=== PATIENT | female | born 1980 | race Caucasian/White ===

== ENCOUNTER 2017-09-19 17:15 | Emergency (ER) | payer MEDICAID, OTHER ==
[~2017-09-19] VITALS: Ht 149.9 cm; Wt 69.2 kg
[~2017-09-19 17:15] MED LIST: AMIT-106 PO; CYCL-1 PO; HYDR-3965 PO; ONDA4TAB6 PO; ONDA8TAB9 PO; SERT50TA PO
[2017-09-19 17:21] VITALS: BP 130/85
[2017-09-19] MEDS ORDERED: HYDR-565 PO (17:45)
[2017-09-19] MEDS ORDERED: CLIN300C85 PO (17:45)
== END 2017-09-19 17:57 | disposition home or self-care (01) ==
LOC: ER 17:16
DX: K08.89 Other specified disorders of teeth and supporting structures (principal); G43.909 Migraine, unspecified, not intractable, without status migrainosus; G89.29 Other chronic pain; Z90.49 Acquired absence of other specified parts of digestive tract; Z98.51 Tubal ligation status; Z98.890 Other specified postprocedural states; Z79.899 Other long term (current) drug therapy
CPT/HCPCS: 99283

== ENCOUNTER 2018-05-18 17:32 | Emergency (ER) | payer MEDICAID ==
[~2018-05-18] VITALS: Ht 124.5 cm; Wt 67.0 kg
[~2018-05-18 17:32] MED LIST changes: +CLIN-96 PO
[2018-05-18 17:39] VITALS: BP 102/61
[2018-05-18] MEDS ORDERED: IBUP-1985 PO (18:30)
== END 2018-05-18 19:19 | disposition home or self-care (01) ==
LOC: ER 17:32
DX: S93.491A Sprain of other ligament of right ankle, initial encounter (principal); G43.909 Migraine, unspecified, not intractable, without status migrainosus; G89.29 Other chronic pain; Z90.49 Acquired absence of other specified parts of digestive tract; Z98.51 Tubal ligation status; Z98.890 Other specified postprocedural states; Z79.899 Other long term (current) drug therapy; W23.0XXA Caught, crushed, jammed, or pinched between moving objects, initial encounter; Y93.89 Activity, other specified; Y92.89 Other specified places as the place of occurrence of the external cause; Y99.9 Unspecified external cause status
CPT/HCPCS: 29515; 73610; 73630; 99283

== ENCOUNTER 2021-06-02 07:07 | Emergency (ER) | payer MEDICAID ==
[~2021-06-02] VITALS: Ht 149.9 cm; Wt 77.3 kg
[~2021-06-02 07:07] MED LIST changes: -AMIT-106 PO; +AMIT25TA9 PO; -CLIN-96 PO; +CLIN-97 PO; +IBUP-1985 PO
[2021-06-02 07:14] VITALS: BP 122/71
[2021-06-02] MEDS ORDERED: PENI500T2 PO (07:50)
== END 2021-06-02 08:30 | disposition home or self-care (01) ==
LOC: ER 07:08
DX: K04.7 Periapical abscess without sinus (principal); G43.909 Migraine, unspecified, not intractable, without status migrainosus; G89.29 Other chronic pain; F17.200 Nicotine dependence, unspecified, uncomplicated; Z90.49 Acquired absence of other specified parts of digestive tract; Z98.891 History of uterine scar from previous surgery; Z98.51 Tubal ligation status; Z79.2 Long term (current) use of antibiotics; Z79.899 Other long term (current) drug therapy
CPT/HCPCS: 99283